=== PATIENT | male | born 1995 | race African-American/Black ===

== ENCOUNTER 2019-01-18 10:53 | Inpatient (IN) | payer OTHER ==
[~2019-01-18] VITALS: Ht 182.9 cm; Wt 77.1 kg
[~2019-01-18 10:53] MED LIST: ALBUTEROL INHAL17 GM INH; AMOXICILLIN 50500 MG PO; BACTRIM DS TAB1 EACH PO; IBUPROFEN 800800 M1 PO; MEDROLDOSEPACK PO; NAPROSYN500 MG PO; NOHOMEMEDICATIONS; PREDNISONE 20 M20 MG PO; ZPAK PO
[2019-01-18 11:01] VITALS: BP 126/103
[2019-01-18 11:24] LABS: ABSOLUTE EOSINOPHILS 0.1 thou/uL (0.0-0.7); ABSOLUTE LYMPHOCYTES 1.4 thou/uL (0.8-5.3); ABSOLUTE MONOCYTES 0.7 thou/uL (0.0-1.2); ABSOLUTE NEUTROPHILS 6.7 thou/uL (1.6-8.1); BASOPHILS 0.5 %; HEMATOCRIT 47.5 % (42.0-52.0); HEMOGLOBIN 15.6 gm/dL (14.0-18.0); LYMPHOCYTES 15.6 %; MCH 30.8 pg (26.0-34.0); MCV 93.3 fL (80.0-100.0); MONOCYTES 7.5 %; MPV 7.7 fl. (7.2-11.1); NUCLEATED RBCS 0 /100WBC; PLATELET COUNT* 230 thou/uL (150-400); POLYS 75.4 %; RBC 5.09 mil/uL (4.50-6.00); RDW-CV 13.7 % (10.5-14.5); WBC 8.9 thou/uL (4.0-11.0)
--- NOTE | 2019-01-18 11:33 | NUR ---
DR. TUCKER IN ROOM TALKING TO PT. PT MOVED FROM ER BED 6 TO ER BED 18. BED 18 CLOSER TO NURSE'S STATION. TELEMETRY, BP CUFF, AND PULSE OX ATTACHED TO PT. MURPHY SINGH ASKED TO PERFORM EKG. PT CHANGED INTO GOWN. PT LAYING IN BED, HOB SEMI FOWLERS. VISITOR X1 AT BEDSIDE. CALL LIGHT WITHIN REACH.
[2019-01-18 11:35] LABS: CALCIUM 9.3 mg/dL (8.5-10.1); POTASSIUM 4.1 mmol/L (3.5-5.1)
[2019-01-18 11:36] LABS: APTT 25.6 Seconds (25.0-31.3); INR 1.1; PROTIME 11.1 Seconds (9.20-11.50)
[2019-01-18 11:44] LABS: ALBUMIN 4.3 g/dL (3.4-5.0); TOTAL BILIRUBIN 0.3 mg/dL (<0.1-1.0); TOTAL PROTEIN 7.1 g/dL (6.4-8.2)
[2019-01-18 13:48] VITALS: BP 148/75
[2019-01-18 13:49] VITALS: BP 141/78
--- NOTE | 2019-01-18 13:51 | NUR ---
PT TAKEN TO CT SCAN VIA STRETCHER BY THIS NURSE AND MURPHY CHAVEZ. TELEMETRY, BP CUFF, AND PULSE OX REMAIN ATTACHED TO PT. IV PROTONIX DRIP AND BANANA BAG REMAIN INFUSING DURING TRANSPORT. PT ARRIVED IN CT AT 1310. AFTER CT COMPLETE, PT TAKEN TO ICU ROOM 2 AND REPORT GIVEN TO NORAH RUBIN. NORAH RUBIN TO ASSUME PT CARE. PT REPORTING FEELING "100% BETTER" WHEN ARRIVED TO ICU ROOM 2.
[2019-01-18 14:00] VITALS: BP 153/82
--- NOTE | 2019-01-18 14:32 | NUR ---
RECEIVED REPORT AND ASSUMED CARE OF PT @ 9959.PT A/O X4,VSS,TRACING SR ON THE MONITOR.NO SIGNS OR SYMPTOMS OF BLEEDING.PT REPORTS NO N/V OR PAIN AT TIME OF ASSESSMENT.HALF WAY THROUGH ICU ADMISSION PROCESS PT REQUESTS TO LEAVE AMA.NURSE EDUCATED PT ON THE RISKS OF LEAVING AGAINST MEDICAL ADVICE.DOCTOR NOTIFIED.AMA PAPERWORK SIGNED ON PLACED IN CHART.IV X3 REMOVED.PT WALKED OUT WITH GIRLFRIEND.
--- NOTE | 2019-01-19 11:15 | EKG ---
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1995 Requested By: Yennifer Lai Order Number: [id number] MD: Zeus Holliday Measurements Intervals [place] Rate: 76 P: 11 WI: 215 QRS: 60 QRSD: 86 T: 41 QT: 363 QTc: 409 Interpretive Statements Sinus rhythm Prolonged WI interval RSR' in V1 or V2, probably normal variant Probable left ventricular hypertrophy ST elev, probable normal early repol pattern No previous ECG available for comparison Electronically Signed On 01-19-2019 11:15:01 CDT by Zeus Holliday [email or web address] <ELECTRONICALLY SIGNED> By: Juvenal Holliday MD, [facility] 01/19/19 1115 1139 1139 Juvenal Holliday MD, [facility] /EPI
== END 2019-01-18 14:41 | disposition left against medical advice (07) | DRG 378 ==
LOC: M.ERS 10:53 → M.TBA-ER 11:41 → M.ICU 13:17
PROVIDERS: Nurse Practitioner Family; ADMIT Internal Medicine
DX: K29.21 Alcoholic gastritis with bleeding (principal); F10.230 Alcohol dependence with withdrawal, uncomplicated; F17.210 Nicotine dependence, cigarettes, uncomplicated; K27.4 Chronic or unspecified peptic ulcer, site unspecified, with hemorrhage; Z53.21 Procedure and treatment not carried out due to patient leaving prior to being seen by health care provider; Z79.899 Other long term (current) drug therapy

== ENCOUNTER 2020-06-29 16:01 | Emergency (ER) | payer OTHER ==
[~2020-06-29] VITALS: Ht 185.4 cm; Wt 99.8 kg
[2020-06-29 16:29] LABS: URINE BLOOD 2+ (Negative); URINE CLARITY CLOUDY; URINE COLOR YELLOW; URINE GLUCOSE-RANDOM NEGATIVE (Negative); URINE KETONES TRACE (Negative); URINE NITRITE-REFLEX NEGATIVE (Negative); URINE PROTEIN 1+ (Negative); URINE SPECIFIC GRAVITY 1.025 (1.005-1.030)
[2020-06-29 16:30] LABS: URINE BILIRUBIN 1+ (Negative); URINE LEUKOCYTES-REFLEX 3+ (Negative)
[2020-06-29 16:32] LABS: BACTERIA-REFLEX >30 Many /HPF (None Seen); CASTS None Seen /LPF (None Seen); CRYSTALS None Seen /LPF (None Seen); MUCUS 0-3 Light strn/LPF (None Seen); SQUAMOUS 0-3 Few /LPF (0-3); URINE RBC >20 Many /HPF (0-2); URINE WBC-REFLEX >25 Many /HPF (0-5); WBC CLUMPS Moderate (None Seen)
[2020-06-29 16:33] LABS: ICTOTEST (BILI CONFIRMATORY) Negative (Negative)
[2020-06-29 16:55] LABS: INFLUENZA A ANTIGEN Negative (Negative); INFLUENZA B ANTIGEN Negative (Negative)
[2020-06-29] MEDS ORDERED: CIPRO500 MG PO (17:02)
[2020-06-29] MEDS ORDERED: FLEXERIL PO (17:02)
[2020-06-29 17:21] VITALS: BP 143/78
== END 2020-06-29 17:21 | disposition home or self-care (01) ==
LOC: M.ERS 16:01
PROVIDERS: Nurse Practitioner Family
DX: N39.0 Urinary tract infection, site not specified (principal); Z20.822 Contact with and (suspected) exposure to COVID-19; F17.210 Nicotine dependence, cigarettes, uncomplicated; Z90.89 Acquired absence of other organs

== ENCOUNTER 2021-01-29 22:01 | Emergency (ER) | payer OTHER ==
[~2021-01-29] VITALS: Ht 185.4 cm; Wt 99.8 kg
[~2021-01-29 22:01] MED LIST changes: +CIPRO500 MG PO; +FLEXERIL PO
[2021-01-29 23:48] VITALS: BP 161/95
--- NOTE | 2021-01-31 11:41 | EKG ---
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: [place] : 1995 Requested By: Edilma Power Order Number: [id number] MD: Rizwan Rodriguez Measurements Intervals [place] Rate: 63 P: 31 PA: 223 QRS: 62 QRSD: 90 T: 45 QT: 372 QTc: 381 Interpretive Statements Sinus rhythm Prolonged PA interval RSR' in V1 or V2, probably normal variant LVH by voltage ST elev, probable normal early repol pattern Compared to ECG 01/18/2019 11:39:45 No significant changes Electronically Signed On 01-31-2021 11:41:09 CDT by Rizwan Rodriguez [email or web address] <ELECTRONICALLY SIGNED> By: Rizwan Rodriguez MD, FAC 01/31/21 1141 05 05 Rizwan Rodriguez MD, FAC /EPI
== END 2021-01-29 23:50 | disposition home or self-care (01) ==
LOC: M.ERS 22:01
DX: J02.9 Acute pharyngitis, unspecified (principal); Z20.822 Contact with and (suspected) exposure to COVID-19; R07.89 Other chest pain; R06.02 Shortness of breath; R50.9 Fever, unspecified; M54.9 Dorsalgia, unspecified; F17.210 Nicotine dependence, cigarettes, uncomplicated; Z90.89 Acquired absence of other organs; Z96.22 Myringotomy tube(s) status